=== PATIENT | female | born 1955 | race Caucasian/White ===

== ENCOUNTER 2020-05-20 22:18 | Inpatient (IN) | payer OTHER ==
[~2020-05-20 22:18] MED LIST: LIDOCAINE PATCH REMOVAL MC SCH
[2020-05-20] MEDS ORDERED: ASPIRIN 81 MG CHEWABLE TABLETS PO ONE (22:22)
--- NOTE | 2020-05-20 22:22 | PDOC ---
Rapid Medical Evaluation Time Seen by Provider: 05/20/20 22:20 Medical Evaluation: Allergies Allergy/AdvReac Type Severity Reaction Status Date / Time No Known Allergies Allergy Verified 11/11/13 15:20 05/20/20 22:20 I have performed a brief in-person evaluation of this patient. CC: Left sided upper back and chest pain for 1 hour; Denies PMHx PE: No focal findings. Orders: cardiac w/u Patient will proceed to ED for further evaluation. 05/20/20 22:21 Discharge Disposition - Diagnosis Chest pain - Referrals - Patient Instructions - Post Discharge Activity
[2020-05-20 22:25] VITALS: BMI 24.7
[2020-05-20] MEDS ORDERED: ASPIRIN 81 MG CHEWABLE TABLETS ONE (22:39)
--- NOTE | 2020-05-20 22:45 | PDOC ---
History of Present Illness - General Chief Complaint: Blood Pressure Problem Stated Complaint: CHEST PAIN Time Seen by Provider: 05/20/20 22:20 - History of Present Illness Initial Comments: 05/20/20 22:40 64 F with PMH depression arrived to ED with chest pain. Chest pain happened suddenly 1 hour ago. Patient was relaxing at home. Pain was 6/10 , localize around the chest, radiating to the left shoulder and the back. Described the pain as pulling sensation. Moving made it worse, relaxing made it better. Patient took 1 Naproxen and it helped with the pain. Denies F/N/V/D, headaches, change of vision, unilat leg pain, abdominal pain, extremity swelling, hx of cancer, immobility . Endorsed chest pain and SOB. PMH: depression PSH:hysterctomy Med: praxil Allergy: none SS: none for smoking, alcohol, drug ROS: GENERAL/CONSTITUTIONAL: No fever or chills. No weakness. HEAD, EYES, EARS, NOSE AND THROAT: No change in vision. No ear pain or discharge. No sore throat. CARDIOVASCULAR: chest pain , shortness of breath RESPIRATORY: No cough, wheezing, or hemoptysis. GASTROINTESTINAL: No nausea, vomiting, diarrhea or constipation. GENITOURINARY: No dysuria, frequency, or change in urination. MUSCULOSKELETAL: No joint or muscle swelling or pain. No neck or back pain. SKIN: No rash NEUROLOGIC: No headache, vertigo, loss of consciousness, or change in strength/sensation. ENDOCRINE: No increased thirst. No abnormal weight change HEMATOLOGIC/LYMPHATIC: No anemia, easy bleeding, or history of blood clots. ALLERGIC/IMMUNOLOGIC: No hives or skin allergy. PE: GENERAL: Awake, alert, and fully oriented, in no acute distress HEAD: No signs of trauma, normocephalic, atraumatic EYES: PERRLA, EOMI, sclera anicteric, conjunctiva clear ENT: Auricles normal inspection, hearing grossly normal, nares patent, oropharynx clear without exudates. Moist mucosa NECK: Normal ROM, supple, no lymphadenopathy, JVD, or masses LUNGS: No distress, speaks full sentences, clear to auscultation bilaterally HEART: Regular rate and rhythm, normal S1 and S2, no murmurs, rubs or gallops, peripheral pulses normal and equal bilaterally. ABDOMEN: Soft, nontender, normoactive bowel sounds. No guarding, no rebound. No masses EXTREMITIES : Normal inspection, Normal range of motion, no edema. No clubbing or cyanosis. NEUROLOGICAL: Cranial nerves II through XII grossly intact. Normal speech, normal gait, no focal sensorimotor deficits SKIN: Warm, Dry, normal turgor, no rashes or lesions noted Past History - Medical History Allergies/Adverse Reactions: Allergies Allergy/AdvReac Type Severity Reaction Status Date / Time No Known Allergies Allergy Verified 05/20/20 22:25 Home Medications: Ambulatory Orders Naprosyn 11/12/13 Paxil - 11/12/13 Psyllium Husk (with Sugar) [Metamucil Packet] 1 each PO BID #0 packet 11/12/13 Anemia: Yes (SICKLE CELL TRAIT) COPD: No GI Disorders: Yes (GERD, REFLUX) Psychiatric Problems: Yes (anxiety) - Psycho-Social/Smoking History Smoking History: Never smoked - Substance Abuse Hx (Audit-C & DAST Scrn) How often the patient has a drink containing alcohol: Never Score: In Men: 4 or > Positive; In Women: 3 or > Positive: 0 Screen Result (Pos requires Nsg. Audit-10AR): Negative *Physical Exam - Vital Signs Last Vital Signs Temp Pulse Resp BP Pulse Ox 98.4 F 62 18 171/82 H 100 05/20/20 22:21 05/20/20 22:21 05/20/20 22:21 05/20/20 22:21 05/20/20 22:21 Heart Score/ECG Review - History History: Moderately suspicious - Electrocardiogram EKG: Normal - Age Age: >/= 65 (regular rate, rhythm, normal axis, no ST changes.) ED Treatment Course - LABORATORY CBC & Chemistry Diagram: 05/20/20 22:34 05/20/20 22:34 Medical Decision Making - Medical Decision Making 05/21/20 02:26 Patient came here for chest pain. EKG is normal. Chemistry is normal except for significant troponint of 0.9 Medical Laboratory Manager was consulted for NSTEMI Admitted under Dr. Rivas with telemetry and NSTEMI Discharge - Discharge Information Problems reviewed: Yes Clinical Impression/Diagnosis: Chest pain Condition: Good - Admission Yes - Follow up/Referral - Patient Discharge Instructions - Post Discharge Activity
[2020-05-20 22:56] LABS: BASO % 1.2 % (0-2.0); HEMATOCRIT 38.4 % (32.4-45.2); HEMOGLOBIN 12.9 GM/dL (10.7-15.3); LYMPH % 41.5 % (8-40); MCH 29.7 pg (25.7-33.7); MCHC 33.5 g/dl (32.0-36.0); MEAN CELL VOLUME 88.5 fl (80-96); MEAN PLT VOLUME 8.5 fl (7.5-11.1); MONO % 8.3 % (3.8-10.2); PLATELET COUNT 172 K/MM3 (134-434); RBC 4.34 M/mm3 (3.60-5.2); RDW 14.6 % (11.6-15.6); WHITE BLOOD COUNT 2.8 K/mm3 (4.0-10.0)
[2020-05-20 23:09] LABS: INR 1.07 (0.83-1.09); PROTHROMBIN TIME (PATIENT) 12.6 SEC (9.7-13.0)
[2020-05-20 23:12] LABS: ACTIVATED PTT 31.4 SECONDS (25.2-36.5)
[2020-05-20 23:26] LABS: BILIRUBIN,TOTAL 0.3 mg/dL (0.2-1); BLOOD UREA NITROGEN 20.4 mg/dL (7-18); CREATININE 0.8 mg/dL (0.55-1.3); MAGNESIUM 2.1 mg/dL (1.8-2.4); POTASSIUM 4.4 mmol/L (3.5-5.1); TOT PROT 7.1 g/dl (6.4-8.2)
[2020-05-20] MEDS ORDERED: LIDOCAINE 5% TOPICAL PATCH ONE (23:34)
[2020-05-20] MEDS ORDERED: ACETAMINOPHEN 1000 MG/100 ML VIAL (NON FORMULARY) IVPB ONE (23:34)
[2020-05-20] MEDS ORDERED: ACETAMINOPHEN INJECTION 100 ML IVPB ONE (23:34)
[2020-05-20] MEDS ORDERED: LIDOCAINE 5% TOPICAL PATCH TP ONE (23:34)
[2020-05-21] MEDS ORDERED: CLOPIDOGREL BISULFATE 300 MG TABLET PO ONE (00:04)
[2020-05-21] MEDS ORDERED: ATORVASTATIN CA 80 MG TABLET (FP) PO ONE (00:05)
[2020-05-21] MEDS ORDERED: METOPROLOL TARTRATE 50 MG TABLET (FP) PO ONE (00:10)
[2020-05-21] MEDS ORDERED: ENOXAPARIN NA (PORCINE) 60 MG/0.6 ML DISP.SYRIN SQ SCH (00:15)
[2020-05-21] MEDS ORDERED: ATORVASTATIN CA 80 MG TABLET (FP) ONE (00:50)
[2020-05-21] MEDS ORDERED: METOPROLOL TARTRATE 25 MG TABLET (FP) ONE ×2 (00:50→08:15)
[2020-05-21] MEDS ORDERED: CLOPIDOGREL BISULFATE 300 MG TABLET ONE (00:50)
[2020-05-21] MEDS ORDERED: ENOXAPARIN NA (PORCINE) 60 MG/0.6 ML DISP.SYRIN SQ ONE ×2 (00:51→08:15)
--- NOTE | 2020-05-21 01:13 | PN ---
Teaching Attending Note Name of Resident: Keith Gilbert ATTENDING PHYSICIAN STATEMENT I saw and evaluated the patient. I reviewed the resident's note and discussed the case with the resident. I agree with the resident's findings and plan as documented. SUBJECTIVE: Patient is a 64 year old woman with a PMH of Depression, Anxiety, GERD and Si ckle call trait who presents to the ER with chest pain that started suddenly 1 hour prior to arrival. Patient was relaxing at home and pain was 6/10 in intensity, radiating to the left shoulder and the back. Described the pain as pulling sensation. Moving made it worse and relaxing made it better. Patient took 1 Naproxen and it helped with the pain. Denies fever, chills, nausea, vomiting, diarrhea, headaches, change in vision, leg pain, abdominal pain, extremity swelling, dysuria or diarrhea. Denies alcohol, tobacco or illicit drug use. No sick contacts or recent travels. Patient has a family history of CAD - brother had [place] and got 2 stents. OBJECTIVE: Alert Vital Signs Period Temp Pulse Resp BP Sys/Clemente Pulse Ox Last 24 Hr 98.4 F 55-62 18-18 150-171/82-86 99-100 HEENT: No Jaundice, eye redness or discharge, PERRLA, EOMI. Normocephalic, atraumatic. External ears are normal and hearing is grossly intact. No nasal discharge. Neck: Supple, nontender. No palpable adenopathy or thyromegaly. No JVD Chest: Good effort. Clear to auscultation and percussion. Heart: Regular. No S3, rub or murmur Abdomen: Not distended, soft, nontender and no HSM. No rebound or guarding. Normal bowel sounds. Ext: Peripheral pulses intact. No leg edema. Skin: Warm and dry. No petechiae, rash or ecchymosis. Neuro: Alert. Oriented x3. CN 2-12 grossly intact. Sensation grossly intact in all four extremities and DTR are symmetric. Psych: Appropriate mood and affect. Good insight. Current Medications Generic Name Dose Route Start Last Admin Trade Name Freq PRN Reason Stop Dose Admin Enoxaparin Sodium 60 mg 05/21/20 00:15 05/21/20 01:01 Lovenox - SQ 60 mg ONCE CHAPARRO Administration Miscellaneous 1 each 05/20/20 22:00 Lidoderm Patch Removal DAILY@2200 [facility] Home Medications Medication Instructions Recorded Naprosyn 11/12/13 Paxil - 11/12/13 Psyllium Husk (with Sugar) 1 each PO BID #0 packet 11/12/13 [Metamucil Packet] Abnormal Lab Results 05/20/20 05/20/20 22:34 22:34 WBC 2.8 L Absolute Neuts (auto) 1.3 L Lymphocytes % 41.5 H Anion Gap 5 L BUN 20.4 H Random Glucose 107 H Troponin I 0.92 H* ASSESSMENT AND PLAN: 1. NSTEMI - Initial troponin is 0.92 and EKG shows NSR at 61/minute and QTc [address]-T wave changes. ER staff consulted Cardiology and prescribed Tylenol, Plavix, Metoprolol, Aspirin 162 mg, Lipitor and full dose Lovenox for the patient. CXR pending. Viral testing for COVID-19 ordered and patient placed on airborne, droplet and contact isolation. Will admit to telemetry, trend troponin, get ECHO, HbA1c, fasting lipids, TSH, continue Lovenox and consult Cardiology. Leukopenia is unexplained - will monitor closely and get urinalysis. There is a case report of leukopenia attributed to Paxil use. Will switch to another antidepressant if leukopenia persists. Patient reports being investigated 10 years ago by wharf tender. Will continue comprehensive care for all of patients comorbid conditions including Paxil for depression. 2. ?Hypertension May have undiagnosed hypertension. Will monitor closely. Patient counseled on the injurious effects of uncontrolled hypertension. Nonpharmacologic measures to control hypertension like weight loss, salt restriction and exercise stressed. Importance of adherence to treatment regimen and attainment of normotension emphasized. 3. DVT prophylaxis - On fulldose Lovenox 60 mg SQ q 12 hours. 4. Advance directives - Full code
--- NOTE | 2020-05-21 01:26 | PDOC ---
Documentation entered by Dianne Sutherland SCRIBE, acting as scribe for Savannah Burnett MD. Savannah Burnett MD: This documentation has been prepared by the jean carlosibeKoko Sydney, SCRIBE, under my direction and personally reviewed by me in its entirety. I confirm that the documentation accurately reflects all work, treatment, procedures, and medical decision making performed by me. Attending Attestation - Resident Resident Name: Raymond Crowley - ED Attending Attestation I have performed the following: I have examined & evaluated the patient, The case was reviewed & discussed with the resident, I agree w/resident's findings & plan, Exceptions are as noted - HPI HPI: 05/20/20 23:33 Patient is a 64 year old female with a significant past medical history of anxiety who presents to the ED with sudden onset left shoulder and chest pain. As per patient, she was relaxing at home when the pain suddenly occurred an hour prior to arrival. Patient notes her 6/10 pain radiates to her left shoulder and back, and is exacerbated with movement and palpation and subsides at rest. Patient reports taking 1 Naproxen for her symptoms with some relief. Denies fever, chills, nausea, vomiting, diarrhea, or constipation. Denies urinary symptoms. Allergies: NKDA - Physicial Exam PE: 05/20/20 23:35 GENERAL: Well-appearing, well-nourished. No apparent distress. HEENT: Normocephalic, atraumatic. PERRL, EOM intact. CARDIOVASCULAR: Normal S1, S2. Regular rate and rhythm. PULMONARY: Clear to auscultation bilaterally. ABDOMEN: Soft, non-distended, non-tender. EXTREMITIES: Normal ROM in all four extremities. No gross deformities. SKIN: Warm, dry. No rash NEUROLOGICAL: No focal neurological deficits. - Medical Decision Making 05/21/20 01:26 CXR nomal Pt has an elevated trop and she will be treated with blood thinners and plavix asa, as well as a dose of metoprolol and lipitor 05/21/20 01:50 Pt admitted to telemetry Heart Score/ECG Review - ECG Intrepretation Rhythm: Regular Rhythm - Mcgrath Mcgrath: Normal - P and HI Prominent R with upright T in V1 (true posterior AL): No Delta Wave(s) Present: No WPW: No - QRS Poor R Wave Progression: No Q Wave Present: No - ST and T Early Repolarization: No Non Specific ST-T Wave changes: No Flattened T Waves: No Prolonged Q-T Interval: No - ECG Impressions Normal ECG: Yes Non-specific ST Elevation: No Ischemic Changes: No Bradycardia: No Torsades parker Pointes: No WPW: No Discharge - Discharge Information Problems reviewed: Yes Clinical Impression/Diagnosis: Chest pain - Follow up/Referral - Patient Discharge Instructions - Post Discharge Activity
[2020-05-21 06:28] LABS: BASO % 1.1 % (0-2.0); EOS % 1.4 % (0-4.5); HEMATOCRIT 39.6 % (32.4-45.2); HEMOGLOBIN 13.2 GM/dL (10.7-15.3); LYMPH % 45.5 % (8-40); MCH 29.1 pg (25.7-33.7); MCHC 33.3 g/dl (32.0-36.0); MEAN CELL VOLUME 87.4 fl (80-96); MEAN PLT VOLUME 8.6 fl (7.5-11.1); MONO % 4.6 % (3.8-10.2); NEUT % 47.4 % (42.8-82.8); PLATELET COUNT 177 K/MM3 (134-434); RBC 4.53 M/mm3 (3.60-5.2); RDW 14.5 % (11.6-15.6); WHITE BLOOD COUNT 3.6 K/mm3 (4.0-10.0)
[2020-05-21 07:32] LABS: CALCIUM 8.9 mg/dL (8.5-10.1); CREATININE 0.7 mg/dL (0.55-1.3); MAGNESIUM 2.2 mg/dL (1.8-2.4); PHOSPHOROUS 3.8 mg/dL (2.5-4.9); POTASSIUM 4.6 mmol/L (3.5-5.1)
--- NOTE | 2020-05-21 07:55 | HP ---
CHIEF COMPLAINT: left-sided chest-pain PCP: HISTORY OF PRESENT ILLNESS: 64F w/ pmh of anxiety(Paxil) presents to [facility] for complaint of Left-sided chest. At ~9pm she was chopped chicken when she felt a sudden dull pressure- squeezing sensation in her Left-upper back, that began to migrated to her posterior neck and Left chest. Thinks that was 7 of 10 in intensity. Had spontaneous resolution in 15mins. Had no further chest pain. Adult son and sister in law were concerned and accompanied pt to the hospital. Pt has had a stress test over 15ys ago, when she had CP that was eventually attributed to her anxiety. Hasn't seen a extrusion former since. Sees PCP annually, with latest March visit w/o any abnormalities reported. Denies palpitations, SOB, diaphoresis, focal chest wall tenderness, pain with moving UE. Denies h/o HLD, DM, CVA, WI. Never had cath. Has seen a Extrusion Former in the past for "thin blood"(?le ukopenia) and was eventually told that she was in the lower spectrum of normal. Never had BM bx. Walks up 3flights of stairs to her home, everyday w/o issues. 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 Korean translation provided by adult CORA at bedside. ER course was notable for: (1) WBC 2.8(ANC 1.3) (2) troponin 0.92 (3) EKG w/o ST abnorm (4) ED contacted Dr Taylor Perez for concern of NSTEMI (5) sp ofirmev, lidoderm patch, ASA 162mg, atorvastatin 80, metoprolol 25, plavix 300, lovenox 60 Recent Travel: denies PAST MEDICAL HISTORY: anxiety PAST SURGICAL HISTORY: hysterectomy Social History: Smoking: denies Alcohol: denies Drugs: denies Allergies No Known Allergies Allergy (Verified 05/20/20 22:25) HOME MEDICATIONS: Home Medications Medication Instructions Recorded Naprosyn 11/12/13 Paxil - 11/12/13 Psyllium Husk (with Sugar) 1 each PO BID #0 packet 11/12/13 [Metamucil Packet] REVIEW OF SYSTEMS CONSTITUTIONAL: Absent: fever, chills, diaphoresis, generalized weakness, malaise, loss of a ppetite, weight change HEENT: Absent: rhinorrhea, nasal congestion, throat pain, throat swelling, difficulty swallowing, mouth swelling, ear pain, eye pain, visual changes CARDIOVASCULAR: Left-sided CP, Left scapular pain Absent: chest pain, syncope, palpitations, irregular heart rate, lightheadedness, peripheral edema RESPIRATORY: Absent: cough, shortness of breath, dyspnea with exertion, orthopnea, wheezing, stridor, hemoptysis GASTROINTESTINAL: Absent: abdominal pain, abdominal distension, nausea, vomiting, diarrhea, constipation, melena, hematochezia GENITOURINARY: Absent: dysuria, frequency, urgency, hesitancy, hematuria, flank pain, genital pain MUSCULOSKELETAL: Absent: myalgia, arthralgia, joint swelling, back pain, neck pain SKIN: Absent: rash, itching, pallor HEMATOLOGIC/IMMUNOLOGIC: Absent: easy bleeding, easy bruising, lymphadenopathy, frequent infections ENDOCRINE: Absent: unexplained weight gain, unexplained weight loss, heat intolerance, cold intolerance NEUROLOGIC: Absent: headache, focal weakness or paresthesias, dizziness, unsteady gait, seizure, mental status changes, bladder or bowel incontinence PSYCHIATRIC: Absent: anxiety, depression, suicidal or homicidal ideation, hallucinations. PHYSICAL EXAMINATION Vital Signs - 24 hr 05/20/20 05/21/20 05/21/20 22:21 01:01 07:15 Temperature 98.4 F Pulse Rate 62 Pulse Rate [ 57 L Apical] Pulse Rate [ 55 L Left] Respiratory 18 18 14 Rate Blood Pressure 171/82 H Blood Pressure 150/86 145/81 [Left Arm] O2 Sat by Pulse 100 99 100 Oximetry (%) GENERAL: Awake, alert, and fully oriented, in no acute distress. HEAD: NC/AT EYES: sclera anicteric, conjunctiva clear. EARS, NOSE, THROAT: Moist mucous membranes. NECK: Normal range of motion, supple without lymphadenopathy, JVD, or masses. LUNGS: Breath sounds equal, clear to auscultation bilaterally. No wheezes, and no crackles. No accessory muscle use. HEART: Regular rate and rhythm, normal S1 and S2 without murmur, rub or gallop. ABDOMEN: Soft, nontender, not distended, no guarding, no rebound. MUSCULOSKELETAL: Normal range of motion at all joints. No bony deformities or tenderness. No CVA tenderness. UPPER EXTREMITIES: 2+ pulses, warm, well-perfused. No cyanosis. No clubbing. No peripheral edema. LOWER EXTREMITIES: 2+ pulses, warm, well-perfused. No calf tenderness. No peripheral edema. NEUROLOGICAL: Normal speech. Laboratory Results - last 24 hr 05/20/20 05/20/20 05/20/20 22:34 22:34 22:34 WBC 2.8 L RBC 4.34 Hgb 12.9 Hct 38.4 MCV 88.5 MCH 29.7 MCHC 33.5 RDW 14.6 Plt Count 172 MPV 8.5 Absolute Neuts (auto) 1.3 L Neutrophils % 47.0 Lymphocytes % 41.5 H Monocytes % 8.3 Eosinophils % 2.0 Basophils % 1.2 Nucleated RBC % 0 PT with INR 12.60 INR 1.07 PTT (Actin FS) 31.4 Sodium 142 Potassium 4.4 Chloride 107 Carbon Dioxide 29 Anion Gap 5 L BUN 20.4 H Creatinine 0.8 Est GFR (CKD-EPI)AfAm 89.67 Est GFR (CKD-EPI)NonAf 77.37 Random Glucose 107 H Hemoglobin A1c % Calcium 9.0 Phosphorus Magnesium 2.1 Total Bilirubin 0.3 AST 18 ALT 16 Alkaline Phosphatase 65 Creatine Kinase 112 Troponin I 0.92 H* Total Protein 7.1 Albumin 4.0 Triglycerides Cholesterol Total LDL Cholesterol HDL Cholesterol TSH 05/21/20 05/21/20 05/21/20 03:46 06:20 06:20 WBC 3.6 L RBC 4.53 Hgb 13.2 Hct 39.6 MCV 87.4 MCH 29.1 MCHC 33.3 RDW 14.5 Plt Count 177 MPV 8.6 Absolute Neuts (auto) 1.7 Neutrophils % 47.4 Lymphocytes % 45.5 H Monocytes % 4.6 Eosinophils % 1.4 Basophils % 1.1 Nucleated RBC % 0 PT with INR INR PTT (Actin FS) Sodium 139 Potassium 4.6 Chloride 107 Carbon Dioxide 27 Anion Gap 5 L BUN 16.0 Creatinine 0.7 Est GFR (CKD-EPI)AfAm 105.38 Est GFR (CKD-EPI)NonAf 90.92 Random Glucose 91 Hemoglobin A1c % Calcium 8.9 Phosphorus 3.8 Magnesium 2.2 Total Bilirubin AST ALT Alkaline Phosphatase Creatine Kinase Troponin I 12.40 H* Total Protein Albumin Triglycerides 62 Cholesterol 210 H Total LDL Cholesterol 122 H HDL Cholesterol 64 H TSH 1.72 05/21/20 06:20 WBC RBC Hgb Hct MCV MCH MCHC RDW Plt Count MPV Absolute Neuts (auto) Neutrophils % Lymphocytes % Monocytes % Eosinophils % Basophils % Nucleated RBC % PT with INR INR PTT (Actin FS) Sodium Potassium Chloride Carbon Dioxide Anion Gap BUN Creatinine Est GFR (CKD-EPI)AfAm Est GFR (CKD-EPI)NonAf Random Glucose Hemoglobin A1c % 5.3 Calcium Phosphorus Magnesium Total Bilirubin AST ALT Alkaline Phosphatase Creatine Kinase Troponin I Total Protein Albumin Triglycerides Cholesterol Total LDL Cholesterol HDL Cholesterol TSH ASSESSMENT/PLAN: 64F w/ pmh of anxiety(Paxil) presents to [facility] for complaint of Left-sided chest. At ~9pm she was chopped chicken when she felt a sudden dull pressure- squeezing sensation in her Left-upper back, that began to migrated to her posterior neck and Left chest. EKG without notable ST changes. Troponin 0.92 then 12.4. Pt asymptomatic throughout ED course. EKG unchanged. Admitted for NSTEMI #NSTEMI > EKG: no ST abnorm > troponin 0.92, 12.4 --fu rpt troponin - sp clopidogrel 300 load, ASA 162mg, lovenox 60 - cw lovenox 60, clovidogrel 75, ASA 81, metoprolol 25, atorvastatin 80 - fu TSH, lipid panel, HbA1c - echo pending - cardiology consulted(Jesse/Chris): --recs pending #chronic low WBC --possibly related to chronic Paxil usage? > WBC 2.8(ANC 1.3) - trend FEN - NPO - no mIVF DVT PPX - full dose lovenox 60mg BID Family Medical History Family Hx Cardiac Disorders: Father (stroke) Family Hx Diabetes: Mother Visit type - Emergency Visit Emergency Visit: Yes ED Registration Date: 05/21/20 Care time: The patient presented to the Emergency Department on the above date and was hospitalized for further evaluation of their emergent condition. - New Patient This patient is new to me today: Yes Date on this admission: 05/21/20 - Critical Care Critical Care patient: No ATTENDING PHYSICIAN STATEMENT I saw and evaluated the patient. I reviewed the resident's note and discussed the case with the resident. I agree with the resident's findings and plan as documented. SUBJECTIVE: OBJECTIVE: ASSESSMENT AND PLAN:
[2020-05-21] MEDS ORDERED: ASPIRIN COATED 81 MG TABLET.EC ONE (08:15)
[2020-05-21] MEDS ORDERED: CLOPIDOGREL BISULFATE 75 MG TABLET (FP) ONE (08:15)
[2020-05-21 09:23] LABS: PH,URINE 6.5 (5.0-8.0); URINE APPEARANCE CLEAR; URINE BILIRUBIN NEGATIVE (NEGATIVE); URINE COLOR YELLOW; URINE GLUCOSE (UA) NEGATIVE (NEGATIVE); URINE KETONE NEGATIVE (NEGATIVE); URINE LEUK ESTERASE NEGATIVE (NEGATIVE); URINE NITRITE NEGATIVE (NEGATIVE); URINE PROTEIN NEGATIVE (NEGATIVE); URINE UROBILINOGEN 0.2 mg/dL (0.2-1.0)
[2020-05-21] MEDS ORDERED: CLOPIDOGREL BISULFATE 75 MG TABLET (FP) PO SCH (10:00)
[2020-05-21] MEDS ORDERED: METOPROLOL TARTRATE 25 MG TABLET (FP) PO SCH (10:00)
[2020-05-21] MEDS: ASPIRIN COATED 81 MG TABLET.EC PO SCH (10:30)
--- NOTE | 2020-05-21 10:49 | CON.CARD ---
Cardiology Consult (text) - Consultation Consultation Note: Coverage for Dr. Fuentes Molina Chief Complaint: Events noted, notes reviewed, chest pain syndrome, elevated cardiac biochemical markers and an abnormal electrocardiogram consistent with non-ST segment elevation myocardial infarction probable posterior infarc tion/uncomplicated History of Present Illness: Seen and examined in the emergency room as a telemetry hold. Full consult dictated Medications: Current Medications Generic Name Dose Route Start Last Admin Trade Name Freq PRN Reason Stop Dose Admin Aspirin 81 mg 05/21/20 10:00 Ecotrin - PO DAILY CHAPARRO Atorvastatin Calcium 80 mg 05/21/20 22:00 Lipitor - PO HS CHAPARRO Clopidogrel Bisulfate 75 mg 05/21/20 10:00 Plavix - PO DAILY CHAPARRO Enoxaparin Sodium 60 mg 05/21/20 00:15 05/21/20 01:01 Lovenox - SQ 60 mg ONCE CHAPARRO Administration Enoxaparin Sodium 60 mg 05/21/20 12:00 Lovenox - SQ BID CHAPARRO Metoprolol Tartrate 25 mg 05/21/20 10:00 Lopressor - PO DAILY [facility] Miscellaneous 1 each 05/21/20 11:00 Lidoderm Patch Removal MC 05/21/20 11:01 ONCE@1100 ONE Review of Systems - Review of Systems Constitutional: denies: Fever or Chills Cardiovascular: As noted above Respiratory: denies: Cough or Sputum Production Gastrointestinal: denies: Nausea, Vomiting, Diarrhea, Constipation, Abdominal Pain Neurological: denies: Headaches Vital Signs: Last Vital Signs Temp Pulse Resp BP Pulse Ox 98.4 F 57 L 14 145/81 100 05/20/20 22:21 05/21/20 07:15 05/21/20 07:15 05/21/20 07:15 05/21/20 07:15 Intake & Output 05/18/20 05/19/20 05/20/20 05/21/20 23:59 23:59 23:59 23:59 Weight 135 lb Neck: Supple Negative JVD No Bruit Respiratory: Clear to auscultation and percussion bilaterally Cardiovascular: S1 S2 Regular Rate and Rhythm no murmurs clicks or gallops Gastrointestinal: Soft Benign Normal Bowel Sounds Ext: Negative Edema Labs: Troponin, BNP 05/20/20 05/21/20 22:34 03:46 Troponin I 0.92 H* 12.40 H* CBC, BMP 05/21/20 06:20 07/18/20 06:20 Hepatic Panel Total Bilirubin 0.3 mg/dL (0.2-1) 05/20/20 22:34 AST 18 U/L (15-37) 05/20/20 22:34 ALT 16 U/L (13-61) 05/20/20 22:34 Alkaline Phosphatase 65 U/L (45-117) 05/20/20 22:34 Albumin 4.0 g/dl (3.4-5.0) 05/20/20 22:34 INR, PTT INR 1.07 (0.83-1.09) 05/20/20 22:34 Assessment/Plan ASSESSMENT: 1. Chest pain syndrome clinical presentation and electrocardiographic findings consistent with coronary artery disease non-ST segment elevation myocardial infarction/posterior wall myocardial infarction/uncomplicated with no post infarct angina pectoris 2. Probable systolic/diastolic left ventricular dysfunction with clinical class 0 [place] [employer] classification left ventricular failure 3. Borderline hypertension 4. Hypercholesterolemia 5. Neutropenia PLAN: 1. Continue Beta-clair therapy and dose titration as needed and as tolerated 2. Recommend the addition of LISE inhibitor or angiotensin receptor clair therapy and dose titration as needed and as tolerated 3. Continue high-dose statin therapy 4. Continue Ecotrin and Lovenox therapies and initiate Brilinta therapy in substitution for Plavix therapy/outcome data 5. Plan for early left heart cardiac catheterization coronary angiography and probable percutaneous intervention early this coming week, risk, benefits and alternatives were reviewed in detail with the patient, patient was advised if symptoms recur and/or persist to notify the hospital staff immediately Scotty Perez M.D.
[2020-05-21] MEDS ORDERED: LIDOCAINE PATCH REMOVAL MC ONE (11:00)
[2020-05-21] MEDS: ENOXAPARIN NA (PORCINE) 30 MG/0.3 ML DISP.SYRIN SQ SCH ×2 (13:01→22:31)
[2020-05-21] MEDS: VALSARTAN 40 MG TABLET (FP) PO SCH (13:07)
--- NOTE | 2020-05-21 14:58 | EKG ---
Test Reason : Blood Pressure : / mmHG Vent. Rate : 056 BPM Atrial Rate : 056 BPM P-R Int : 158 ms QRS Dur : 096 ms QT Int : 422 ms P-R-T Axes : 052 047 -34 degrees QTc Int : 407 ms SINUS BRADYCARDIA ABNORMAL ECG WHEN COMPARED WITH ECG OF 20-MAY-2020 22:57, INVERTED T WAVES HAVE REPLACED NONSPECIFIC T WAVE ABNORMALITY IN INFERIOR LEADS T WAVE INVERSION NOW EVIDENT IN LATERAL LEADS Confirmed by MANDY POWELL MD ([id number]) on 05/21/2020 2:58:35 PM Referred By: Confirmed By:MANDY POWELL MD
--- NOTE | 2020-05-21 14:59 | EKG ---
Test Reason : Blood Pressure : / mmHG Vent. Rate : 061 BPM Atrial Rate : 061 BPM P-R Int : 150 ms QRS Dur : 090 ms QT Int : 398 ms P-R-T Axes : 039 038 049 degrees QTc Int : 400 ms NORMAL SINUS RHYTHM NONSPECIFIC ST ABNORMALITY ABNORMAL ECG WHEN COMPARED WITH ECG OF 19-JUL-2006 12:48, NO SIGNIFICANT CHANGE WAS FOUND Confirmed by MANDY POWELL MD ([id number]) on 05/21/2020 2:59:25 PM Referred By: Confirmed By:MANDY POWELL MD
--- NOTE | 2020-05-21 20:59 | CONS ---
DATE OF CONSULTATION: 05/21/2020 REQUESTING PHYSICIAN: Hospitalist service. COVERAGE FOR: Olvin Molina MD This is a 64-year-old female with no significant past medical history, who denied any history of coronary artery disease, angina pectoris, congestive heart failure, hypertension/hypertensive cardiovascular disease, diabetes mellitus, hypercholesterolemia, tobacco abuse, or family history of premature coronary artery disease, who presented to [facility] with sudden onset of upper back discomfort with radiation to the upper chest anteriorly, which was described as heaviness. Symptoms persisted. In view of which, patient presented to the emergency room for further evaluation and management. By the time she arrived to the emergency room, symptoms had subsided. Patient did not report any associated symptomatology. Patient does not report any prior history of chest discomfort. Patient denies any dyspnea, orthopnea, paroxysmal nocturnal dyspnea, or peripheral edema. Patient denies any palpitations, dizziness, lightheadedness, or syncope. Patient denies any fatigue or tiredness. PAST MEDICAL HISTORY: None. PAST SURGICAL HISTORY: None. SOCIAL HISTORY: Nonsmoker. FAMILY HISTORY: No family history of premature coronary artery disease. ALLERGIES: None reported. MEDICAL THERAPY AT HOME: None. REVIEW OF SYSTEMS: Head and Neck: Denies headache, photophobia, blurring of vision. Respiratory: No cough or sputum production. Cardiovascular: As noted above. Gastrointestinal: Denies nausea, vomiting, diarrhea, abdominal discomfort. Genitourinary: No symptoms reported. Musculoskeletal: No symptoms reported. PHYSICAL EXAMINATION: Vital Signs: Blood pressure is 145/81 mmHg. Pulse rate is 57 beats per minute. Afebrile. Head and Neck: Pupils equal and reactive to light and accommodation. Extraocular muscles are intact. Anicteric sclerae. Negative JVD. No bruit appreciated. Chest: Clear to auscultation and percussion. Cardiovascular: S1, S2 regular. No murmurs, clicks, or gallops. Abdomen: Soft, benign. Normoactive bowel sounds. Extremities: Negative edema. Intact distal pulses. No calf tenderness. . Electrocardiogram initially revealed sinus rhythm, within normal limits. Repeat electrocardiogram revealed evidence of ST and T-wave abnormality. CBC revealed white cell count of 3.6, hemoglobin of 13.2, platelet count 177. Basic metabolic profile revealed a sodium 139, potassium 4.6, BUN 16, creatinine 0.7, glucose 91. Troponin initially 0.92. Repeat was 12.40. INR 1.07. ASSESSMENT: 1. Chest pain syndrome, clinical presentation and electrocardiographic findings consistent with coronary artery disease, thz-OX-hqcubfo-elevation myocardial infarction/posterior wall myocardial infarction, uncomplicated with no post-infarction angina pectoris. 2. Probable systolic/diastolic left ventricular dysfunction with clinical class 0 [place] Heart Association classification left ventricular failure. 3. Borderline hypertension. 4. Hypercholesterolemia. 5. Neutropenia. RECOMMENDATION: 1. Continue beta-clair therapy and dose titration as needed and as tolerated. 2. Recommend the addition of LISE inhibitor or angiotensin receptor clair therapy and dose titration as needed and as tolerated. 3. Continue high-dose statin therapy. 4. Continue Ecotrin and Lovenox therapy and initiate Brilinta therapy in substitution for Plavix therapy related to outcome data. 5. Plan for early left heart cardiac catheterization, coronary angiography, and probable percutaneous coronary intervention early this coming week. Risks, benefits, and alternatives were reviewed in detail with the patient. Patient was advised if symptoms recur and/or persist to notify the hospital staff immediately. Thank you for the kind referral. JACINTO BURTON M.D. [id number]
[2020-05-21] MEDS ORDERED: PT OWN MED DRAWER 7, Y5N ONE (22:25)
[2020-05-21] MEDS: ATORVASTATIN CA 80 MG TABLET (FP) PO SCH (22:31)
[2020-05-21] MEDS: METOPROLOL TARTRATE 25 MG TABLET (FP) PO SCH (22:31)
[2020-05-21] MEDS: TICAGRELOR 90 MG TABLET PO SCH (22:38)
--- NOTE | 2020-05-22 06:53 | PN ---
Progress Note (short form) - Note Progress Note: Coverage for Dr. Fuentes Molina Chief Complaint: Events noted, notes reviewed, resting in bed, denies any recurrent chest discomfort, denies dyspnea, clinical presentation is consistent with non-ST segment elevation myocardial infarction probable posterior infarction/uncomplicated History of Present Illness: Seen and examined on telemetry. Events noted, notes reviewed, resting in bed, denies any recurrent chest discomfort, denies dyspnea, clinical presentation is consistent with non-ST segment elevation myocardial infarction probable pos terior infarction/uncomplicated Medications: Current Medications Generic Name Dose Route Start Last Admin Trade Name Fredq PRN Reason Stop Dose Admin Aspirin 81 mg 05/21/20 10:00 05/22/20 09:05 Ecotrin - PO 81 mg DAILY [facility] Administration Atorvastatin Calcium 80 mg 05/21/20 22:00 05/21/20 22:31 Lipitor - PO 80 mg HS [facility] Administration Enoxaparin Sodium 60 mg 05/21/20 12:00 05/22/20 09:05 Lovenox - SQ 60 mg BID [facility] Administration Metoprolol Tartrate 25 mg 05/21/20 22:00 05/22/20 09:06 Lopressor - PO 25 mg BID [facility] Administration Ticagrelor 90 mg 05/21/20 22:00 05/22/20 09:07 Brilinta - PO 90 mg BID [facility] Administration Valsartan 40 mg 05/21/20 12:00 05/22/20 09:06 Diovan - PO 40 mg DAILY [facility] Administration Review of Systems - Review of Systems Constitutional: denies: Fever or Chills Cardiovascular: As noted above Respiratory: denies: Cough or Sputum Production Gastrointestinal: denies: Nausea, Vomiting, Diarrhea, Constipation, Abdominal Pain Neurological: denies: Headaches Vital Signs: Last Vital Signs Temp Pulse Resp BP Pulse Ox 97.9 F 62 18 115/60 100 05/21/20 19:00 05/22/20 06:45 05/22/20 06:45 05/22/20 06:45 05/21/20 23:00 Intake & Output 05/19/20 05/20/20 05/21/20 05/22/20 23:59 23:59 23:59 23:59 Intake Total 405 10 Balance 405 10 Weight 135 lb 135 lb 0.001 oz Neck: Supple Negative JVD No Bruit Respiratory: Clear to auscultation and percussion bilaterally Cardiovascular: S1 S2 Regular Rate and Rhythm no murmurs clicks or gallops Gastrointestinal: Soft Benign Normal Bowel Sounds Ext: Negative Edema Labs: Troponin, BNP 05/21/20 05/22/20 10:49 00:05 Troponin I 8.90 H* 8.02 H* CBC, BMP 05/21/20 06:20 05/21/20 06:20 Hepatic Panel Total Bilirubin 0.3 mg/dL (0.2-1) 05/20/20 22:34 AST 18 U/L (15-37) 05/20/20 22:34 ALT 16 U/L (13-61) 05/20/20 22:34 Alkaline Phosphatase 65 U/L (45-117) 05/20/20 22:34 Albumin 4.0 g/dl (3.4-5.0) 05/20/20 22:34 INR, PTT INR 1.07 (0.83-1.09) 05/20/20 22:34 Assessment/Plan ASSESSMENT: 1. Chest pain syndrome clinical presentation and electrocardiographic findings consistent with coronary artery disease non-ST segment elevation myocardial infarction/posterior wall myocardial infarction/uncomplicated with no post infarct angina pectoris 2. Probable systolic/diastolic left ventricular dysfunction with clinical class 0 [place] Heart Association classification left ventricular failure 3. Borderline hypertension 4. Hypercholesterolemia 5. Neutropenia PLAN: 1. Continue Lopressor therapy and dose titration as needed and as tolerated 2. Continue Diovan therapy and dose titration as needed and as tolerated 3. Continue high-dose statin therapy/Lipitor 4. Continue Ecotrin, Brilinta and Lovenox therapies pending planned intervention 5. As outlined in yesterday's note plan for early left heart cardiac catheterization coronary angiography and probable percutaneous intervention early this coming week, risk, benefits and alternatives were reviewed again in detail with the patient, patient was advised if symptoms recur and/or persist to notify the hospital staff immediately Scotty Perez M.D.
[2020-05-22] MEDS: ENOXAPARIN NA (PORCINE) 30 MG/0.3 ML DISP.SYRIN SQ SCH ×2 (09:05→21:17)
[2020-05-22] MEDS: ASPIRIN COATED 81 MG TABLET.EC PO SCH (09:05)
[2020-05-22] MEDS: METOPROLOL TARTRATE 25 MG TABLET (FP) PO SCH ×2 (09:06→21:17)
[2020-05-22] MEDS: VALSARTAN 40 MG TABLET (FP) PO SCH (09:06)
[2020-05-22] MEDS: TICAGRELOR 90 MG TABLET PO SCH ×2 (09:07→21:17)
--- NOTE | 2020-05-22 10:18 | PN ---
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 Pt is for pt to go to [facility] for cardiac cath. - Current Medication List Current Medications: Active Medications Aspirin (Ecotrin -) 81 mg PO DAILY [facility] Last Admin: 05/22/20 09:05 Dose: 81 mg Documented by: Atorvastatin Calcium (Lipitor -) 80 mg PO HS [facility] Last Admin: 05/21/20 22:31 Dose: 80 mg Documented by: Enoxaparin Sodium (Lovenox -) 60 mg SQ BID [facility] Last Admin: 05/22/20 09:05 Dose: 60 mg Documented by: Metoprolol Tartrate (Lopressor -) 25 mg PO BID [facility] Last Admin: 05/22/20 09:06 Dose: 25 mg Documented by: Ticagrelor (Brilinta -) 90 mg PO BID [facility] Last Admin: 05/22/20 09:07 Dose: 90 mg Documented by: Valsartan (Diovan -) 40 mg PO DAILY [facility] Last Admin: 05/22/20 09:06 Dose: 40 mg Documented by: - Objective Vital Signs: Vital Signs Temperature 98 F 05/22/20 07:31 Pulse Rate 93 H 05/22/20 07:31 Respiratory Rate 18 05/22/20 07:31 Blood Pressure 144/75 05/22/20 07:31 O2 Sat by Pulse Oximetry (%) 100 05/22/20 07:31 Constitutional: Yes: Well Nourished, No Distress, Calm Cardiovascular: Yes: Regular Rate and Rhythm Respiratory: Yes: Regular, CTA Bilaterally Gastrointestinal: Yes: Normal Bowel Sounds, Soft Genitourinary: Yes: WNL Musculoskeletal: Yes: WNL Extremities: Yes: WNL Edema: No Peripheral Pulses WNL: Yes Neurological: Yes: Alert, Oriented Psychiatric: Yes: Alert, Oriented Labs: CBC, BMP 05/21/20 06:20 05/21/20 06:20 INR, PTT INR 1.07 (0.83-1.09) 05/20/20 22:34 Problem List - Problems (1) NSTEMI (non-ST elevated myocardial infarction) Assessment/Plan: -Seen by Cardiology -Continue BB -Continue Brilinta -Continue ASA 81 mg -Continue Lovenox 60 BID -Continue Statin -Continue ARB -Trops have already peaked -Plan for Left heart cath + PCI early this week -Continue Telemetry monitoring Problems reviewed: Yes Code(s): I21.4 - NON-ST ELEVATION (NSTEMI) MYOCARDIAL INFARCTION (2) Hyperlipidemia Assessment/Plan: -Atorvastatin 80 mg po HS Problems reviewed: Yes Code(s): E78.5 - HYPERLIPIDEMIA, UNSPECIFIED (3) Chest pain Assessment/Plan: -as above Problems reviewed: Yes Code(s): R07.9 - CHEST PAIN, UNSPECIFIED Assessment/Plan See problem list Spoke to pt's sister in law Sammie Rodriguez and son Leon Gupta to update pt status. Pt and family in agreement with the plan.
[2020-05-22] MEDS: ATORVASTATIN CA 80 MG TABLET (FP) PO SCH (21:17)
--- NOTE | 2020-05-23 09:17 | EKG ---
Test Reason : Blood Pressure : / mmHG Vent. Rate : 053 BPM Atrial Rate : 053 BPM P-R Int : 148 ms QRS Dur : 090 ms QT Int : 408 ms P-R-T Axes : 028 028 016 degrees QTc Int : 382 ms SINUS BRADYCARDIA NONSPECIFIC T WAVE ABNORMALITY ABNORMAL ECG WHEN COMPARED WITH ECG OF 21-MAY-2020 05:20, NONSPECIFIC T WAVE ABNORMALITY HAS REPLACED INVERTED T WAVES IN LATERAL LEADS Confirmed by Shital Quesada ([id number]) on 05/23/2020 9:17:46 AM Referred By: Confirmed By:Shital Quesada
--- NOTE | 2020-05-23 09:31 | PN ---
Progress Note, Physician History of Present Illness: Denies any recurrent chest discomfort, dyspnea, palpitations. Clinical presentation is consistent with non-ST segment elevation myocardial infarction probable posterior infarction/uncomplicated - Current Medication List Current Medications: Active Medications Aspirin (Ecotrin -) 81 mg PO DAILY [facility] Last Admin: 05/22/20 09:05 Dose: 81 mg Documented by: Atorvastatin Calcium (Lipitor -) 80 mg PO HS [facility] Last Admin: 05/22/20 21:17 Dose: 80 mg Documented by: Enoxaparin Sodium (Lovenox -) 60 mg SQ BID [facility] Last Admin: 05/22/20 21:17 Dose: 60 mg Documented by: Metoprolol Tartrate (Lopressor -) 25 mg PO BID [facility] Last Admin: 05/22/20 21:17 Dose: 25 mg Documented by: Ticagrelor (Brilinta -) 90 mg PO BID [facility] Last Admin: 05/22/20 21:17 Dose: 90 mg Documented by: Valsartan (Diovan -) 40 mg PO DAILY [facility] Last Admin: 05/22/20 09:06 Dose: 40 mg Documented by: - Objective Vital Signs: Vital Signs Temperature 97.5 F L 05/23/20 03:00 Pulse Rate 56 L 05/23/20 06:00 Respiratory Rate 20 05/23/20 06:00 Blood Pressure 106/64 05/23/20 06:00 O2 Sat by Pulse Oximetry (%) 100 05/23/20 03:00 Constitutional: Yes: No Distress, Calm, Thin Neck: Yes: Supple Cardiovascular: Yes: Regular Rate and Rhythm Respiratory: Yes: Regular, Diminished, On Nasal O2 Gastrointestinal: Yes: Normal Bowel Sounds, Soft Edema: No Labs: CBC, BMP 05/21/20 06:20 05/21/20 06:20 INR, PTT INR 1.07 (0.83-1.09) 05/20/20 22:34 - ....Imaging EKG: Report Reviewed (Tele: NSR) Problem List - Problems (1) Chest pain Code(s): R07.9 - CHEST PAIN, UNSPECIFIED Qualifiers: Chest pain type: precordial pain Qualified Code(s): R07.2 - Precordial pain (2) Hyperlipidemia Code(s): E78.5 - HYPERLIPIDEMIA, UNSPECIFIED Qualifiers: Hyperlipidemia type: pure hypercholesterolemia Qualified Code(s): E78.00 - Pure hypercholesterolemia, unspecified; E78.0 - Pure hypercholesterolemia (3) NSTEMI (non-ST elevated myocardial infarction) Code(s): I21.4 - NON-ST ELEVATION (NSTEMI) MYOCARDIAL INFARCTION Assessment/Plan 1.Coronary artery disease non-ST segment elevation myocardial infarction/po sterior wall myocardial infarction/uncomplicated with no post infarct angina pectoris 2. Probable systolic/diastolic left ventricular dysfunction with clinical class 0 [place] Heart Association classification left ventricular failure 3. Borderline hypertension 4. Hypercholesterolemia 5. Neutropenia PLAN: 1. Continue Lopressor 25 bid and dose titration as needed and as tolerated 2. Continue Diovan 40 qd and dose titration as needed and as tolerated 3. Continue Lipitor 80 qd 4. Continue Ecotrin 81 qd, Brilinta 90 bid and Lovenox 60 bid pending planned intervention 5. Plan for early left heart cardiac catheterization coronary angiography and probable percutaneous intervention this week, risk, benefits and alternatives were reviewed again in detail with the patient, patient was advised if symptoms recur and/or persist to notify the hospital staff immediately. Transfer to [facility] pending Covid 19 status. 6. F/u echo results, trops downtrending
[2020-05-23] MEDS: ASPIRIN COATED 81 MG TABLET.EC PO SCH (10:41)
[2020-05-23] MEDS: METOPROLOL TARTRATE 25 MG TABLET (FP) PO SCH ×2 (10:42→22:39)
[2020-05-23] MEDS: TICAGRELOR 90 MG TABLET PO SCH ×2 (10:42→22:40)
[2020-05-23] MEDS: ENOXAPARIN NA (PORCINE) 30 MG/0.3 ML DISP.SYRIN SQ SCH ×2 (10:42→22:40)
--- NOTE | 2020-05-23 13:59 | PN ---
Physical Exam: SUBJECTIVE: Patient seen and examined at bedside, denies CP, comfortable OBJECTIVE: Vital Signs Period Temp Pulse Resp BP Sys/Clemente Pulse Ox Last 24 Hr 97.4 F-98.2 F 56-67 16-22 101-122/57-69 99-100 GENERAL: The patient is awake, alert, and fully oriented, in no acute distress. HEAD: Normal with no signs of trauma. EYES: PERRL, extraocular movements intact, sclera anicteric, conjunctiva clear. No ptosis. ENT: Ears normal, nares patent, oropharynx clear without exudates, moist mucous membranes. NECK: Trachea midline, full range of motion, supple. LUNGS: Breath sounds equal, clear to auscultation bilaterally, no wheezes, no crackles, no accessory muscle use. HEART: Regular rate and rhythm, S1, S2 without murmur, rub or gallop. ABDOMEN: Soft, nontender, nondistended, normoactive bowel sounds, no guarding, no rebound, no hepatosplenomegaly, no masses. EXTREMITIES: 2+ pulses, warm, well-perfused, no edema. NEUROLOGICAL: Cranial nerves II through XII grossly intact. Normal speech, gait not observed. PSYCH: Normal mood, normal affect. SKIN: Warm, dry, normal turgor, no rashes or lesions noted Active Medications Generic Name Dose Route Start Last Admin Trade Name Fredq PRN Reason Stop Dose Admin Aspirin 81 mg 05/21/20 10:00 05/23/20 10:41 Ecotrin - PO 81 mg DAILY [facility] Administration Atorvastatin Calcium 80 mg 05/21/20 22:00 05/22/20 21:17 Lipitor - PO 80 mg HS [facility] Administration Enoxaparin Sodium 60 mg 05/21/20 12:00 05/23/20 10:42 Lovenox - SQ Not Given BID [facility] Metoprolol Tartrate 25 mg 05/21/20 22:00 05/23/20 10:42 Lopressor - PO 25 mg BID [facility] Administration Ticagrelor 90 mg 05/21/20 22:00 05/23/20 10:42 Brilinta - PO 90 mg BID [facility] Administration Valsartan 40 mg 05/21/20 12:00 05/22/20 09:06 Diovan - PO 40 mg DAILY [facility] Administration ASSESSMENT/PLAN: 64 YOF with HTN, HLD presented with chest pain NSTEMI for cath this week, no current chest pain, elevated trop - c/w BB, Brilinta, ASA, Lovanox, statin - c/w telemetry - COVID test pending - cardiology consult appreciated Visit type - Emergency Visit Emergency Visit: Yes ED Registration Date: 05/21/20 Care time: The patient presented to the Emergency Department on the above date and was hospitalized for further evaluation of their emergent condition. - New Patient This patient is new to me today: Yes Date on this admission: 05/23/20 - Critical Care Critical Care patient: No - Discharge Referral Referred to [facility] Med P.C[facility] No - Medication Review Med list reviewed for High Risk Meds patients 65 and older: Yes (reviewed)
[2020-05-23] MEDS: VALSARTAN 40 MG TABLET (FP) PO SCH (15:16)
--- NOTE | 2020-05-23 17:13 | ECHO ---
Version: 1 Name: HANNAH WALKER Exam: Adult Echocardiogram Study Date: 05/23/2020, 3:14 PM Age: 64 Years MMode/2D Measurements & Calculations IVSd: 0.93 cm LVIDs: 2.6 cm LVIDd: 4.0 cm LVPWd: 1.13 cm LVOT diam: 2.11 cm Ao root diam: 2.7 cm LA dimension: 2.7 cm Doppler Measurements & Calculations MV E max devonte: 50.3 cm/sec Med E/e': 9.6 MV A max devonte: 71.6 cm/sec Med Peak E' Devonte: 5.3 cm/sec MV E/A: 0.70 Lat E/e': 5.7 Lat Peak E' Devonte: 8.8 cm/sec Ao max P.0 mmHg Ao V2 max: 173.1 cm/sec Procedure Study Quality: Fair. Left Ventricle The left ventricle is grossly normal size. There is mild concentric left ventricular hypertrophy. Th e left ventricular ejection fraction is normal. Ejection Fraction = 55-60%. Grade I diastolic dysfunction, (abnormal relaxation pattern). Right Ventricle The right ventricle is normal in size and function. Atria The left atrium is mildly dilated. Right atrial size is normal. Mitral Valve The mitral valve is grossly normal. There is trace mitral regurgitation. Tricuspid Valve The tricuspid valve is not well visualized, but is grossly normal. There is trace tricuspid regurgit ation. Aortic Valve The aortic valve is normal in structure and function. Pulmonic Valve The pulmonic valve is not well seen, but is grossly normal. Great Vessels The aortic root is normal size. Pericardium/Pleura There is no pericardial effusion. Summary Statements LV: Normal size,mild LVH,normal systolic function,EF 55-60%,impaired relaxation RV: Normal LA:mildly dilated No significant valvular dysfunction Shital Quesada 05/23/2020, 5:12 PM Ordering Physician: Keith Gilbert Referring Physician: FABRICIO Performed By: Nora Sánchez
[2020-05-23] MEDS ORDERED: PT OWN MED DRAWER 7, Y5N ONE (19:53)
[2020-05-23] MEDS: ATORVASTATIN CA 80 MG TABLET (FP) PO SCH (22:40)
[2020-05-24 06:43] LABS: BASO % 0.6 % (0-2.0); EOS % 2.3 % (0-4.5); HEMOGLOBIN 13.8 GM/dL (10.7-15.3); LYMPH % 46.8 % (8-40); MCH 29.1 pg (25.7-33.7); MCHC 32.9 g/dl (32.0-36.0); MEAN CELL VOLUME 88.5 fl (80-96); MEAN PLT VOLUME 8.9 fl (7.5-11.1); MONO % 7.7 % (3.8-10.2); NEUT % 42.6 % (42.8-82.8); PLATELET COUNT 164 K/MM3 (134-434); RBC 4.75 M/mm3 (3.60-5.2); RDW 15.2 % (11.6-15.6); WHITE BLOOD COUNT 3.1 K/mm3 (4.0-10.0)
[2020-05-24 07:26] LABS: ALBUMIN 3.6 g/dl (3.4-5.0); BILIRUBIN,TOTAL 0.9 mg/dL (0.2-1); BLOOD UREA NITROGEN 15.8 mg/dL (7-18); CALCIUM 8.8 mg/dL (8.5-10.1); CREATININE 0.7 mg/dL (0.55-1.3); POTASSIUM 4.8 mmol/L (3.5-5.1); TOT PROT 7.4 g/dl (6.4-8.2)
--- NOTE | 2020-05-24 09:43 | PN ---
Progress Note, Physician Chief Complaint: Events noted Not in distress History of Present Illness: Patient was seen and examined. Awake and alert. Chart was reviewed Denies chest pain, SOB or palpitations - Current Medication List Current Medications: Active Medications Aspirin (Ecotrin -) 81 mg PO DAILY [facility] Last Admin: 05/23/20 10:41 Dose: 81 mg Documented by: Atorvastatin Calcium (Lipitor -) 80 mg PO HS [facility] Last Admin: 05/23/20 22:40 Dose: 80 mg Documented by: Enoxaparin Sodium (Lovenox -) 60 mg SQ BID [facility] Last Admin: 05/23/20 22:40 Dose: 60 mg Documented by: Metoprolol Tartrate (Lopressor -) 25 mg PO BID [facility] Last Admin: 05/23/20 22:39 Dose: 25 mg Documented by: Ticagrelor (Brilinta -) 90 mg PO BID [facility] Last Admin: 05/23/20 22:40 Dose: 90 mg Documented by: Valsartan (Diovan -) 40 mg PO DAILY [facility] Last Admin: 05/23/20 15:16 Dose: Not Given Documented by: - Objective Vital Signs: Vital Signs Temperature 97.7 F 05/24/20 08:53 Pulse Rate 72 05/24/20 08:53 Respiratory Rate 20 05/24/20 09:00 Blood Pressure 120/71 05/24/20 08:53 O2 Sat by Pulse Oximetry (%) 97 05/24/20 09:00 Eyes: Yes: PERRL HENT: Yes: Atraumatic Neck: Yes: Supple Cardiovascular: Yes: Regular Rate and Rhythm, S1, S2 Respiratory: Yes: CTA Bilaterally Gastrointestinal: Yes: Normal Bowel Sounds, Soft. No: Tenderness Edema: No Additional Findings/Remarks: - Review of Systems Constitutional: denies Fever. denies: Chills Cardiovascular: denies Shortness of Breath. denies: Chest Pain, Palpitations Respiratory: denies Cough, SOB. denies: Hemoptysis, Orthopnea, PND, Wheezing Gastrointestinal: denies: Abdominal Pain, Constipation, Diarrhea, Melena, Nausea, Rectal Bleeding, Vomiting Genitourinary: denies: Dysuria, Hematuria Musculoskeletal: denies: Back Pain, Joint Pain Neurological: denies: Dizziness, Headache, Seizure, Syncope Labs: CBC, BMP 05/24/20 05:45 05/24/20 05:45 Problem List - Problems (1) HTN (hypertension) Code(s): I10 - ESSENTIAL (PRIMARY) HYPERTENSION (2) CAD (coronary artery disease) Code(s): I25.10 - ATHSCL HEART DISEASE OF [place] CORONARY ARTERY W/O ANG PCTRS (3) Chest pain Code(s): R07.9 - CHEST PAIN, UNSPECIFIED Qualifiers: Chest pain type: precordial pain Qualified Code(s): R07.2 - Precordial pain (4) Hyperlipidemia Code(s): E78.5 - HYPERLIPIDEMIA, UNSPECIFIED Qualifiers: Hyperlipidemia type: pure hypercholesterolemia Qualified Code(s): E78.00 - Pure hypercholesterolemia, unspecified; E78.0 - Pure hypercholesterolemia (5) NSTEMI (non-ST elevated myocardial infarction) Code(s): I21.4 - NON-ST ELEVATION (NSTEMI) MYOCARDIAL INFARCTION Assessment/Plan 1. Coronary artery disease non-ST segment elevation myocardial infarction/posterior wall myocardial infarction 2. Probable systolic/diastolic left ventricular dysfunction with clinical class 0 [place] Heart Association classification left ventricular failure 3. Borderline hypertension 4. Hypercholesterolemia 5. Neutropenia PLAN: 1. Continue Lopressor 25 mg BID 2. Continue Diovan 40 mg QD 3. Continue Lipitor 80 mg QHS 4. Continue Ecotrin 81 mg QD, Brilinta 90 mg BID and Lovenox 60 mg BID pending planned intervention 5. Plan for early left heart cardiac catheterization coronary angiography once COVID testing is negative. Plan to transfer to [facility]. Jovanny Rios MD
[2020-05-24] MEDS ORDERED: PT OWN MED DRAWER 7, Y5N ONE ×2 (09:57→21:24)
[2020-05-24] MEDS: ASPIRIN COATED 81 MG TABLET.EC PO SCH (10:01)
[2020-05-24] MEDS: ENOXAPARIN NA (PORCINE) 30 MG/0.3 ML DISP.SYRIN SQ SCH ×2 (10:02→21:38)
[2020-05-24] MEDS: METOPROLOL TARTRATE 25 MG TABLET (FP) PO SCH ×2 (10:02→21:38)
[2020-05-24] MEDS: TICAGRELOR 90 MG TABLET PO SCH ×2 (10:02→21:39)
[2020-05-24] MEDS: VALSARTAN 40 MG TABLET (FP) PO SCH (10:02)
--- NOTE | 2020-05-24 10:51 | PN ---
Physical Exam: SUBJECTIVE: Patient seen and examined at the bedside. denies chest pain or left shoulder pain. no shortness of breath at rest. OBJECTIVE: troponin 15.7. 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 Patient presents to the ED on 05/21/2020 with complaints of left-sided chest. 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 Covid pending. Vital Signs Period Temp Pulse Resp BP Sys/Clemente Pulse Ox Last 24 Hr 97.7 F-97.9 F 50-72 18-21 95-120/54-72 97-100 GENERAL: The patient is awake, alert, and fully oriented, in no acute distress. HEAD: Normal with no signs of trauma. EYES: PERRL, extraocular movements intact, sclera anicteric, conjunctiva clear. No ptosis. ENT: Ears normal, nares patent, oropharynx clear without exudates, moist mucous membranes. NECK: Trachea midline, full range of motion, supple. LUNGS: Breath sounds equal, clear to auscultation bilaterally HEART: Regular rate and rhythm ABDOMEN: Soft, nontender, nondistended, normoactive bowel sounds EXTREMITIES: no edema. NEUROLOGICAL: Normal speech, gait not observed. PSYCH: Normal mood, normal affect. SKIN: Warm, dry, normal turgor, no rashes or lesions notes Laboratory Results - last 24 hr 05/24/20 05/24/20 05:45 05:45 WBC 3.1 L RBC 4.75 Hgb 13.8 Hct 42.0 MCV 88.5 MCH 29.1 MCHC 32.9 RDW 15.2 Plt Count 164 MPV 8.9 Absolute Neuts (auto) 1.3 L Neutrophils % 42.6 L Lymphocytes % 46.8 H Monocytes % 7.7 Eosinophils % 2.3 Basophils % 0.6 Nucleated RBC % 0 Sodium 140 Potassium 4.8 Chloride 106 Carbon Dioxide 28 Anion Gap 6 L BUN 15.8 Creatinine 0.7 Est GFR (CKD-EPI)AfAm 105.38 Est GFR (CKD-EPI)NonAf 90.92 Random Glucose 91 Calcium 8.8 Total Bilirubin 0.9 AST 108 H ALT 35 Alkaline Phosphatase 66 Troponin I 15.70 H* Total Protein 7.4 Albumin 3.6 Active Medications Generic Name Dose Route Start Last Admin Trade Name Klarissa PRN Reason Stop Dose Admin Aspirin 81 mg 05/21/20 10:00 05/24/20 10:01 Ecotrin - PO 81 mg DAILY CHAPARRO Administration Atorvastatin Calcium 80 mg 05/21/20 22:00 05/23/20 22:40 Lipitor - PO 80 mg HS CHAPARRO Administration Enoxaparin Sodium 60 mg 05/21/20 12:00 05/24/20 10:02 Lovenox - SQ 60 mg BID CHAPARRO Administration Metoprolol Tartrate 25 mg 05/21/20 22:00 05/24/20 10:02 Lopressor - PO 25 mg BID CHAPARRO Administration Ticagrelor 90 mg 05/21/20 22:00 05/24/20 10:02 Brilinta - PO 90 mg BID CHAPARRO Administration Valsartan 40 mg 05/21/20 12:00 05/24/20 10:02 Diovan - PO 40 mg DAILY CHAPARRO Administration ASSESSMENT/PLAN: Problem List - Problems (1) NSTEMI (non-ST elevated myocardial infarction) Assessment/Plan: elevated troponins at 15, t wave inversions. patient remains without symptoms. no chest pain or shoulder pain for transfer to cardiac oil field laborer pending covid results on lovenox bid Code(s): I21.4 - NON-ST ELEVATION (NSTEMI) MYOCARDIAL INFARCTION (2) CAD (coronary artery disease) Assessment/Plan: patient for transfer to cardiac cath Code(s): I25.10 - ATHSCL HEART DISEASE OF [place] CORONARY ARTERY W/O ANG PCTRS (3) Chest pain Assessment/Plan: elevated troponins at 15, t wave inversions. patient remains without symptoms. no chest pain or shoulder pain for transfer to cardiac oil field laborer pending covid results Code(s): R07.9 - CHEST PAIN, UNSPECIFIED Qualifiers: Chest pain type: precordial pain Qualified Code(s): R07.2 - Precordial pain (4) HTN (hypertension) Assessment/Plan: stable of lopressor and diovan Code(s): I10 - ESSENTIAL (PRIMARY) HYPERTENSION (5) Hyperlipidemia Assessment/Plan: on lipitor 80mg Code(s): E78.5 - HYPERLIPIDEMIA, UNSPECIFIED Qualifiers: Hyperlipidemia type: pure hypercholesterolemia Qualified Code(s): E78.00 - Pure hypercholesterolemia, unspecified; E78.0 - Pure hypercholesterolemia Visit type - Emergency Visit Emergency Visit: Yes ED Registration Date: 05/21/20 Care time: The patient presented to the Emergency Department on the above date and was hospitalized for further evaluation of their emergent condition. - New Patient This patient is new to me today: Yes Date on this admission: 05/24/20 - Critical Care Critical Care patient: No - Discharge Referral Referred to [facility] No - Medication Review Med list reviewed for High Risk Meds patients 65 and older: Yes
--- NOTE | 2020-05-24 12:04 | EKG ---
Test Reason : Blood Pressure : / mmHG Vent. Rate : 068 BPM Atrial Rate : 068 BPM P-R Int : 148 ms QRS Dur : 098 ms QT Int : 416 ms P-R-T Axes : 052 022 -86 degrees QTc Int : 442 ms NORMAL SINUS RHYTHM INFERIOR INFARCT , AGE UNDETERMINED T WAVE ABNORMALITY, CONSIDER LATERAL ISCHEMIA ABNORMAL ECG WHEN COMPARED WITH ECG OF 21-MAY-2020 23:35, INFERIOR INFARCT IS NOW PRESENT T WAVE INVERSION MORE EVIDENT IN INFERIOR LEADS INVERTED T WAVES HAVE REPLACED NONSPECIFIC T WAVE ABNORMALITY IN LATERAL LEADS QT HAS LENGTHENED Confirmed by Antonio Avelar MD ([id number]) on 05/24/2020 12:04:31 PM Referred By: Howard BRIDGES Confirmed By:Antonio Avelar MD
[2020-05-24] MEDS: ATORVASTATIN CA 80 MG TABLET (FP) PO SCH (21:38)
[2020-05-25 07:52] LABS: BASO % 0.8 % (0-2.0); EOS % 3.1 % (0-4.5); HEMATOCRIT 41.7 % (32.4-45.2); HEMOGLOBIN 13.9 GM/dL (10.7-15.3); LYMPH % 49.8 % (8-40); MCH 29.2 pg (25.7-33.7); MCHC 33.2 g/dl (32.0-36.0); MEAN CELL VOLUME 87.8 fl (80-96); MEAN PLT VOLUME 8.7 fl (7.5-11.1); NEUT % 36.3 % (42.8-82.8); PLATELET COUNT 201 K/MM3 (134-434); RBC 4.76 M/mm3 (3.60-5.2); RDW 14.6 % (11.6-15.6); WHITE BLOOD COUNT 2.8 K/mm3 (4.0-10.0)
[2020-05-25 08:02] VITALS: BP 113/61; PULSE 58; TEMP 98
[2020-05-25 08:28] LABS: ALBUMIN 3.8 g/dl (3.4-5.0); BILIRUBIN,TOTAL 0.6 mg/dL (0.2-1); BLOOD UREA NITROGEN 16.9 mg/dL (7-18); CALCIUM 9.1 mg/dL (8.5-10.1); MAGNESIUM 2.4 mg/dL (1.8-2.4); POTASSIUM 4.5 mmol/L (3.5-5.1); TOT PROT 7.4 g/dl (6.4-8.2)
[2020-05-25 08:30] LABS: CREATININE 0.8 mg/dL (0.55-1.3)
[2020-05-25] MEDS ORDERED: PT OWN MED DRAWER 7, Y5N ONE (09:13)
[2020-05-25] MEDS: VALSARTAN 40 MG TABLET (FP) PO SCH (09:17)
[2020-05-25] MEDS: ASPIRIN COATED 81 MG TABLET.EC PO SCH (09:19)
[2020-05-25] MEDS: ENOXAPARIN NA (PORCINE) 30 MG/0.3 ML DISP.SYRIN SQ SCH (09:20)
[2020-05-25] MEDS: TICAGRELOR 90 MG TABLET PO SCH (09:20)
[2020-05-25] MEDS: METOPROLOL TARTRATE 25 MG TABLET (FP) PO SCH (09:20)
--- NOTE | 2020-05-25 09:21 | DS ---
Physical Exam: SUBJECTIVE: Patient seen and examined at the bedside. denies chest pain, denies shortness of breath. 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 Patient presents to the ED on 05/21/2020 with complaints of left-sided chest. She is being transferred today to cardiac labor service representative (Joshua). Covid negative. Vital Signs Period Temp Pulse Resp BP Sys/Clemente Pulse Ox Last 24 Hr 97.4 F-98.1 F 57-87 18-22 110-124/57-72 100-100 PHYSICAL EXAM GENERAL: The patient is awake, alert, and fully oriented, in no acute distress. HEAD: Normal with no signs of trauma. EYES: PERRL, extraocular movements intact, sclera anicteric, conjunctiva clear. No ptosis. ENT: Ears normal, nares patent, oropharynx clear without exudates, moist mucous membranes. NECK: Trachea midline, full range of motion, supple. LUNGS: Breath sounds equal, clear to auscultation bilaterally HEART: Regular rate and rhythm ABDOMEN: Soft, nontender, nondistended, normoactive bowel sounds EXTREMITIES: no edema. NEUROLOGICAL: Normal speech, gait not observed. PSYCH: Normal mood, normal affect. SKIN: Warm, dry, normal turgor, no rashes or lesions notes LABS Laboratory Results - last 24 hr 05/25/20 05/25/20 06:50 06:50 WBC 2.8 L RBC 4.76 Hgb 13.9 Hct 41.7 MCV 87.8 MCH 29.2 MCHC 33.2 RDW 14.6 Plt Count 201 D MPV 8.7 Absolute Neuts (auto) 1.0 L Neutrophils % 36.3 L Lymphocytes % 49.8 H Monocytes % 10.0 Eosinophils % 3.1 Basophils % 0.8 Nucleated RBC % 0 Sodium 142 Potassium 4.5 Chloride 106 Carbon Dioxide 31 Anion Gap 5 L BUN 16.9 Creatinine 0.8 Est GFR (CKD-EPI)AfAm 89.67 Est GFR (CKD-EPI)NonAf 77.37 Random Glucose 97 Calcium 9.1 Magnesium 2.4 Total Bilirubin 0.6 AST 77 H ALT 48 Alkaline Phosphatase 71 Troponin I 6.80 H* Total Protein 7.4 Albumin 3.8 HOSPITAL COURSE: Date of Admission:05/21/20 Date of Discharge: 05/25/20 Minutes to complete discharge: 60 Discharge Summary Problems reviewed: Yes Reason For Visit: CHEST PAIN Current Active Problems CAD (coronary artery disease) (Acute) Chest pain (Acute) HTN (hypertension) (Acute) Hyperlipidemia (Acute) NSTEMI (non-ST elevated myocardial infarction) (Acute) Condition: Guarded - Instructions Diet, Activity, Other Instructions: TRANSFER TO [facility] FOR CARDIAC CATH Disposition: TRANSFER ACUTE CARE/OTHER HOSP - Home Medications Comprehensive Discharge Medication List: Ambulatory Orders Naproxen [Naprosyn -] 250 mg PO BID PRN 05/21/20 Paroxetine HCl [Paxil] 20 mg PO DAILY 05/21/20 Psyllium Husk (with Sugar) [Metamucil Packet] 1 each PO BID PRN 05/21/20 Problem List - Problems (1) NSTEMI (non-ST elevated myocardial infarction) Assessment/Plan: elevated troponins at 15, t wave inversions. patient remains without symptoms. no chest pain or shoulder pain for transfer to cardiac cath today on lovenox bid Code(s): I21.4 - NON-ST ELEVATION (NSTEMI) MYOCARDIAL INFARCTION (2) CAD (coronary artery disease) Assessment/Plan: patient for transfer to cardiac cath Code(s): I25.10 - ATHSCL HEART DISEASE OF [place] CORONARY ARTERY W/O ANG PCTRS (3) Chest pain Assessment/Plan: elevated troponins peaked at 15, t wave inversions. patient remains without symptoms. no chest pain or shoulder pain for transfer to cardiac labor service representative Code(s): R07.9 - CHEST PAIN, UNSPECIFIED Qualifiers: Chest pain type: precordial pain Qualified Code(s): R07.2 - Precordial pain (4) HTN (hypertension) Assessment/Plan: stable on lopressor and diovan Code(s): I10 - ESSENTIAL (PRIMARY) HYPERTENSION (5) Hyperlipidemia Assessment/Plan: on lipitor 80mg Code(s): E78.5 - HYPERLIPIDEMIA, UNSPECIFIED Qualifiers: Hyperlipidemia type: pure hypercholesterolemia Qualified Code(s): E78.00 - Pure hypercholesterolemia, unspecified; E78.0 - Pure hypercholesterolemia This patient is new to me today: No Emergency Visit: Yes ED Registration Date: 05/21/20 Care time: The patient presented to the Emergency Department on the above date and was hospitalized for further evaluation of their emergent condition. Critical Care patient: No - Discharge Referral Referred to [facility] No
--- NOTE | 2020-05-25 19:04 | PN ---
Progress Note (short form) - Note Progress Note: [facility] @ [facility] Joshua shows ectatic RPL with small vessel thrombus too distal to intervene, 90% ostial distal LCx, 30% mid LAD myocardial bridge, normal LVEF 60% with mild inferior HK, elevated LVEDP 24 mmHg, TR band placed right radial access site, no complications. As patient has remained asymptomatic since admission 05/20/2020, will optimize medical therapy with Brilinta 90 bid, ASA 81 qd, Lipitor 80 qd, Toprol XL 50 qd and Diovan 80 qd. March d/c home once hemostasis achieved with f/u in office . Problem List - Problems (1) Chest pain Code(s): R07.9 - CHEST PAIN, UNSPECIFIED Qualifiers: Chest pain type: precordial pain Qualified Code(s): R07.2 - Precordial pain (2) Hyperlipidemia Code(s): E78.5 - HYPERLIPIDEMIA, UNSPECIFIED Qualifiers: Hyperlipidemia type: pure hypercholesterolemia Qualified Code(s): E78.00 - Pure hypercholesterolemia, unspecified; E78.0 - Pure hypercholesterolemia (3) NSTEMI (non-ST elevated myocardial infarction) Code(s): I21.4 - NON-ST ELEVATION (NSTEMI) MYOCARDIAL INFARCTION
== END 2020-05-25 09:39 | disposition short-term general hospital (02) | DRG 281 ==
LOC: JER 22:18 → JERBED 05-21 01:10 → J4W 05-21 12:47
PROVIDERS: ADMIT Internal Medicine; ATTEND Nurse Practitioner Family
DX: I21.4 Non-ST elevation (NSTEMI) myocardial infarction (principal); I50.40 Unspecified combined systolic (congestive) and diastolic (congestive) heart failure; K21.9 Gastro-esophageal reflux disease without esophagitis; D57.3 Sickle-cell trait; E78.5 Hyperlipidemia, unspecified; I25.10 Atherosclerotic heart disease of native coronary artery without angina pectoris; D70.9 Neutropenia, unspecified; F41.8 Other specified anxiety disorders; I11.0 Hypertensive heart disease with heart failure
CPT/HCPCS: 36415; 71046-TC-FY; 80048; 80053; 80061; 81003; 82550; 83036; 83721; 83735; 84100; 84443; 84484; 85025; 85610; 85730; 93005; 93010; 93306-TC; 99285-25; J0131; U0003

== ENCOUNTER 2024-11-20 04:28 | Day surgery (SDC) | payer OTHER ==
[2024-11-17 10:33] VITALS: BMI 21.4
[2024-11-20 11:12] VITALS: TEMP 97.8
[2024-11-20 11:35] VITALS: BP 116/55; PULSE 62; RESP 16
== END 2024-11-20 10:15 | disposition home or self-care (01) ==
LOC: JASU-ENDO 04:28
PROVIDERS: ATTEND Student in an Organized Health Care Education/Training Program
PROC: 0DJD8ZZ Inspection of Lower Intestinal Tract, Via Natural or Artificial Opening Endoscopic (ICD-10-PCS; principal; 2024-11-20 08:30)
DX: Z12.11 Encounter for screening for malignant neoplasm of colon (principal); K64.8 Other hemorrhoids